=== PATIENT | female | born 1945 | race Caucasian/White ===

== ENCOUNTER 2024-08-31 11:07 | Observation (INO) | payer OTHER ==
[~2024-08-31] VITALS: Ht 154.9 cm; Wt 74.2 kg
[2024-08-31] VITALS (11 sets, daily range): BP systolic 137–178; BP diastolic 66–88
[2024-08-31] MEDS ORDERED: CLOPIDOGREL BISULFATE 75 MG/TAB TAB PO ONE (11:15)
[2024-08-31] MEDS ORDERED: methylPREDNISolone SODIUM SUCC 125 MG/2 ML SDV IV ONE (11:20)
[2024-08-31] MEDS ORDERED: IPRATROPIUM-Albuterol 0.5MG-2.5MG/3 ML NEB ONE ×2 (11:20)
[2024-08-31 11:38] LABS: BASO% 0.4 % (0-3); HEMATOCRIT 33.3 % (37.0-47.0); HEMOGLOBIN 10.5 g/dl (12.0-16.0); IMMATURE GRANULOCYTES 0.2 % (0.0-5.0); LYMPH% 14.9 % (15-41); MEAN CELL VOLUME 95.7 fL CALC (80.0-100.0); MEAN CORPUSCULAR HGB 30.2 pG CALC (26.0-32.0); MEAN CORPUSCULAR HGB CONC 31.5 g/dL CAL (32.0-36.0); MONO% 9.3 % (2-13); NEUT# 3.33 thou/uL (2.00-7.15); NEUT% 69.2 % (42-76); RED BLOOD COUNT 3.48 mill/uL (4.20-5.60); RED CELL DISTRI WIDTH 13.7 % (11.5-15.5)
[2024-08-31 11:49] LABS: ALBUMIN 3.8 g/dL (3.2-5.0); ALKALINE PHOSPHATASE 39 u/l (38-126); ANION GAP 9 (6-22 (CALC)); BILIRUBIN, TOTAL 0.6 mg/dL (0.02-1.3); BUN 18 mg/dL (8-23); BUN/CREATININE RATIO 34 (12-20 (CALC)); CARBON DIOXIDE 31 mmol/l (22-30); CHLORIDE 105 mmol/l (95-108); CREATININE 0.5 mg/dL (0.5-1.0); ESTIMATED GFR 95 ML/MIN (>=90 (CALC)); POTASSIUM 4.4 mmol/l (3.5-5.1); SGOT/AST 30 u/l (9-36); SODIUM 141 mmol/l (137-146); TOTAL PROTEIN 6.1 g/dL (6.3-8.2)
[2024-08-31] MEDS ORDERED: AMLODIPINE BESYL5 MG PO (12:08)
[2024-08-31] MEDS ORDERED: ATORVASTATIN CA20 MG PO (12:08)
[2024-08-31] MEDS ORDERED: BACLOFEN10 MG PO (12:09)
[2024-08-31] MEDS ORDERED: CYMBALTA60 MG PO (12:09)
[2024-08-31] MEDS ORDERED: CLONAZEPAM0.5 M1 PO (12:09)
[2024-08-31] MEDS ORDERED: FAMOTIDINE20 M1 PO (12:10)
[2024-08-31] MEDS ORDERED: ZETIA10 MG PO (12:10)
[2024-08-31] MEDS ORDERED: METFORMIN500 M2 PO (12:11)
[2024-08-31] MEDS ORDERED: COZAAR50 MG PO (12:11)
[2024-08-31] MEDS ORDERED: PROPRANOLOL HCL60 MG PO (12:12)
[2024-08-31] MEDS ORDERED: SENNA/DSS1 TAB PO (12:13)
[2024-08-31] MEDS ORDERED: MAGNESIUM HYDROXIDE 30 ML UDC PO PRN (14:50)
[2024-08-31] MEDS ORDERED: ACETAMINOPHEN 325 MG/TAB PO PRN (14:50)
[2024-08-31] MEDS ORDERED: IPRATROPIUM-Albuterol 0.5MG-2.5MG/3 ML NEB PRN (14:55)
[2024-08-31] MEDS ORDERED: NICOTINE TRANSDERMAL 21 MG/PATCH TD SCH (17:00)
[2024-08-31] MEDS ORDERED: clonazePAM 0.5 MG/TAB PO SCH (21:00)
[2024-08-31] MEDS ORDERED: metFORMIN HYDROCHLORIDE 500 MG/TAB PO SCH (21:00)
[2024-08-31] MEDS ORDERED: FAMOTIDINE 20 MG/TAB PO SCH (21:00)
[2024-08-31] MEDS ORDERED: methylPREDNISolone Sod Succ 40 MG/ML SDV IV SCH (21:00)
[2024-08-31] MEDS ORDERED: ATORVASTATIN CALCIUM 20 MG/TAB PO SCH (21:00)
[2024-08-31] MEDS ORDERED: ENOXAPARIN SODIUM 40 MG/0.4 ML SYR SC SCH (21:00)
[2024-08-31] MEDS ORDERED: BACLOFEN 10 MG/TAB PO SCH (21:00)
[2024-08-31] MEDS ORDERED: PROPRANOLOL HCL 20 MG/TAB PO SCH (21:00)
[2024-08-31] MEDS ORDERED: amLODIPine BESYLATE 5 MG/TAB PO SCH (21:00)
[2024-09-01] VITALS: BP 132/65
[2024-09-01 02:22] LABS: BASO% 0.1 % (0-3); HEMOGLOBIN 10.3 g/dl (12.0-16.0); IMMATURE GRANULOCYTES 0.1 % (0.0-5.0); LYMPH% 6.8 % (15-41); MEAN CELL VOLUME 93.8 fL CALC (80.0-100.0); MEAN CORPUSCULAR HGB 30.2 pG CALC (26.0-32.0); MEAN CORPUSCULAR HGB CONC 32.2 g/dL CAL (32.0-36.0); MONO% 1.4 % (2-13); NEUT# 7.12 thou/uL (2.00-7.15); NEUT% 91.6 % (42-76); RED BLOOD COUNT 3.41 mill/uL (4.20-5.60); RED CELL DISTRI WIDTH 13.5 % (11.5-15.5)
[2024-09-01 02:30] LABS: ALBUMIN 3.5 g/dL (3.2-5.0); BILIRUBIN, TOTAL 0.5 mg/dL (0.02-1.3); CHOLESTEROL HDL RATIO 1.5 (<4.4 (CALC)); CREATININE 0.6 mg/dL (0.5-1.0); POTASSIUM 3.9 mmol/l (3.5-5.1); TOTAL PROTEIN 5.8 g/dL (6.3-8.2)
[2024-09-01 04:00] VITALS: BP 141/49
[2024-09-01] MEDS ORDERED: LOSARTAN Potassium 50 MG/TAB PO SCH (09:00)
[2024-09-01 09:43] VITALS: BP 165/72
[2024-09-01 09:47] VITALS: BP 165/72
[2024-09-01] MEDS ORDERED: VENTOLIN HFA108 MCG IN (10:50)
== END 2024-09-01 11:35 | disposition home or self-care (01) | DRG 313 ==
LOC: ED 11:07 → ED-I 14:14 → ED 14:41 → MS2 14:42
PROVIDERS: Family Medicine; Nurse Practitioner Family; ADMIT Internal Medicine; ATTEND Internal Medicine
DX: R07.89 Other chest pain (principal); J44.1 Chronic obstructive pulmonary disease with (acute) exacerbation; I10 Essential (primary) hypertension; E11.9 Type 2 diabetes mellitus without complications; I25.10 Atherosclerotic heart disease of native coronary artery without angina pectoris; E78.5 Hyperlipidemia, unspecified; N31.9 Neuromuscular dysfunction of bladder, unspecified; H35.30 Unspecified macular degeneration; F17.200 Nicotine dependence, unspecified, uncomplicated; Z88.8 Allergy status to other drugs, medicaments and biological substances; Z95.5 Presence of coronary angioplasty implant and graft; Z79.84 Long term (current) use of oral hypoglycemic drugs; Z20.822 Contact with and (suspected) exposure to COVID-19
CPT/HCPCS: J1650